=== PATIENT | female | born 1965 | race Caucasian/White ===

== ENCOUNTER → 2021-06-05 | Outpatient (CLI) | payer OTHER | LOC: KOH-I 13:19 | DX: F17.210 Nicotine dependence, cigarettes, uncomplicated (principal) | CPT/HCPCS: 71271 ==

== ENCOUNTER 2021-06-10 00:30 | Inpatient (IN) | payer OTHER ==
[~2021-06-10] VITALS: Ht 165.1 cm; Wt 127.0 kg
[2021-06-10 01:04] LABS: HEMOGLOBIN 16.2 gm/dl (12.3-15.3); RED BLOOD COUNT 5.1 M/UL (4.00-5.10); WHITE BLOOD COUNT 17.1 K/UL (4.5-11.0)
[2021-06-10 01:23] LABS: BUN/CREATININE RATIO 15 (0-10)
[2021-06-10 06:28] LABS: RED BLOOD COUNT 5.07 M/UL (4.00-5.10); WHITE BLOOD COUNT 18.8 K/UL (4.5-11.0)
[2021-06-10] MEDS ORDERED: ADIPEX-P37.5 MG PO (07:23)
[2021-06-10] MEDS ORDERED: LEVOTHYROXINE200 MC2 PO (07:24)
[2021-06-10] MEDS ORDERED: HYDROCHLOROTHIA25 MG PO (07:24)
[2021-06-10] MEDS ORDERED: CLARITIN10 M2 PO (07:25)
[2021-06-10] MEDS ORDERED: PROAIR HFA8.5 GM INH (07:27)
[2021-06-10] MEDS ORDERED: NICORETTE4 M1 BU (07:29)
[2021-06-10 07:49] LABS: BUN/CREATININE RATIO 18 (0-10)
[2021-06-10] MEDS ORDERED: LISINOPRIL5 MG PO (09:56)
[2021-06-10] MEDS ORDERED: IPRAT-ALBUT 0.5-3 ML NEB (10:02)
[2021-06-11 02:01] LABS: HEMOGLOBIN 15.8 gm/dl (12.3-15.3); RED BLOOD COUNT 4.98 M/UL (4.00-5.10); WHITE BLOOD COUNT 21.8 K/UL (4.5-11.0)
[2021-06-11 02:24] LABS: BUN/CREATININE RATIO 28 (0-10)
[2021-06-11] MEDS ORDERED: MEDROL TAB 4 MG4 MG PO (10:51)
[2021-06-11] MEDS ORDERED: PROAIR HFA8.5 GM INH (10:51)
[2021-06-11] MEDS ORDERED: SYMBICORT 16010.2 GM INH (10:51)
[2021-06-11] MEDS ORDERED: IPRAT-ALBUT 0.5-3 ML NEB (11:58)
[2021-06-12 02:11] LABS: HEMOGLOBIN 15.8 gm/dl (12.3-15.3); RED BLOOD COUNT 4.96 M/UL (4.00-5.10)
[2021-06-12 02:39] LABS: BUN/CREATININE RATIO 27 (0-10)
[2021-06-12] MEDS ORDERED: LEVOFLOXACIN750 MG PO (08:02)
--- NOTE | 2021-06-12 09:06 | NUR ---
PTS O2 DROPPED TO 78% ON ROOM AIR.
[2021-06-12] MEDS ORDERED: NICOTINE PATCH1 EAC2 TOP (11:02)
[2021-06-15 16:11] LABS: ORGANISM ID Not indicated. (.); SPECIMEN SOURCE Urine (.); STREPTOCOCCUS PNEUMONIAE AG Negative (Negative)
== END 2021-06-12 12:36 | disposition home health service (06) | DRG 193 ==
LOC: ER1 00:30 → PROG CARE 02:30 → CDU 02:30 → PROG CARE 04:56
PROVIDERS: Family Medicine; Internal Medicine; ADMIT Internal Medicine
DX: J18.9 Pneumonia, unspecified organism (principal); J96.21 Acute and chronic respiratory failure with hypoxia; J96.22 Acute and chronic respiratory failure with hypercapnia; J44.0 Chronic obstructive pulmonary disease with (acute) lower respiratory infection; Z20.822 Contact with and (suspected) exposure to COVID-19; J44.1 Chronic obstructive pulmonary disease with (acute) exacerbation; E66.2 Morbid (severe) obesity with alveolar hypoventilation; Z68.42 Body mass index [BMI] 45.0-49.9, adult; E03.9 Hypothyroidism, unspecified; I11.9 Hypertensive heart disease without heart failure; F17.290 Nicotine dependence, other tobacco product, uncomplicated; T38.0X5A Adverse effect of glucocorticoids and synthetic analogues, initial encounter; Z99.81 Dependence on supplemental oxygen; Z90.49 Acquired absence of other specified parts of digestive tract; Z83.3 Family history of diabetes mellitus; Z71.6 Tobacco abuse counseling
CPT/HCPCS: 36415; 36600; 71045; 80048; 80053; 80307; 82550; 82553; 82803; 83036; 83605; 83735; 83880; 84100; 84439; 84443; 84484; 85025; 85027; 86140; 87040; 87070; 87081; 87086; 87205; 87278; 87899; 93005; 94640; 94664; 94760; 96365; 96366; 96375; 97161; 97165; 99285; C9113; J0456; J1650; J1956; J2543; J2920; J2930; J7030; U0002

== ENCOUNTER → 2021-06-30 | Outpatient (CLI) | payer OTHER ==
[~2021-06-30] MED LIST: ADIPEX-P37.5 MG PO; CLARITIN10 M2 PO; HYDROCHLOROTHIA25 MG PO; IPRAT-ALBUT 0.5-3 ML NEB; LEVOFLOXACIN750 MG PO; LEVOTHYROXINE200 MC2 PO; LISINOPRIL5 MG PO; MEDROL TAB 4 MG4 MG PO; NICORETTE4 M1 BU; NICOTINE PATCH1 EAC2 TOP; PROAIR HFA8.5 GM INH; SYMBICORT 16010.2 GM INH
== END ==
LOC: EXRD 15:41
DX: J96.91 Respiratory failure, unspecified with hypoxia (principal)
CPT/HCPCS: 71046; 94060; 94729